=== PATIENT | male | born 1995 | race Caucasian/White ===

== ENCOUNTER → 2024-07-31 13:45 | Outpatient (BNVA) | payer OTHER, SELFPAY | PROVIDERS: Visit Provider Family Medicine | DX: J40 Bronchitis, not specified as acute or chronic (principal); J02.9 Acute pharyngitis, unspecified | CPT/HCPCS: 87880 ==

== ENCOUNTER → 2024-10-18 08:29 | Outpatient (BNVA) | payer OTHER, SELFPAY | PROVIDERS: PCP Family Medicine; Visit Provider Family Medicine | DX: Z13.6 Encounter for screening for cardiovascular disorders (principal) | CPT/HCPCS: 36415; 80053; 80061; 84443; 85025 ==

== ENCOUNTER 2024-11-02 15:16 | Emergency (ER) | payer OTHER, SELFPAY ==
--- NOTE | 2024-11-02 15:17 | XRR_ITS ---
PROCEDURE INFORMATION: Exam: XR Chest Exam date and time: 11/02/2024 3:45 PM Age: 29 years old Clinical indication: Chest pressure; -intermittent chest pain; Palpitations; Additional info: -intermittent chest pain; Palpitations TECHNIQUE: Imaging protocol: Radiologic exam of the chest. Views: 1 view. COMPARISON: No relevant prior studies available. FINDINGS: Lungs: Unremarkable. No consolidation or mass. Pleural spaces: Unremarkable. No pleural effusion. No pneumothorax. Heart/Mediastinum: Unremarkable. No cardiomegaly. Bones/joints: Unremarkable. XR/XR chest 1V portable [id number] IMPRESSION: No acute findings.
--- NOTE | 2024-11-02 15:17 | ECG_ITS ---
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 Measurements Intervals [place] Rate: 80 P: 67 TX: 131 QRS: 65 QRSD: 74 T: 32 QT: 339 QTc: 392 Interpretive Statements SINUS RHYTHM No previous ECG available for comparison Electronically Signed On 11-02-2024 21:08:55 CDT by Kay Diaz M.D. [email or web address]
[2024-11-02 15:18] VITALS: BP 146/79; PULSE 84; TEMP 36.9; O2SAT 100; BMI 32.7
--- NOTE | 2024-11-02 15:36 | W.ED.ARRPALP ---
HPI - Arrhythmia/Palpitations General: Chief Complaint: Arrhythmia/Palpitations Stated Complaint: chest pain Time Seen by Provider: 11/02/24 15:31 History of Present Illness: 29-year-old man with a history of ADHD, seasonal allergies, asthma and recently diagnosed hypertension who is currently only prescribed a as needed clonidine and supposed to be taking his blood pressure measurements at home and being followed by his primary care provider. He says he has been taking it once in the morning as he was told. He presents today with palpitations and chest tightness. Related Data Home Medications ?Medication ?Instructions ?Recorded ?Confirmed cetirizine 10 mg capsule (Zyrtec) 10 mg PO QAM PRN allergies 09/25/24 11/02/24 fluticasone propionate 50 1 spray intranasal DAILY 10/17/24 11/02/24 mcg/actuation nasal spray,suspension bupropion HCl 75 mg tablet 75 mg PO QAM 11/02/24 11/02/24 montelukast 10 mg tablet 10 mg PO QAM 11/02/24 11/02/24 Previous Rx's ?Medication ?Instructions ?Recorded albuterol sulfate 90 mcg/actuation 2 puff inhalation Q6H PRN 10/05/24 aerosol inhaler (Ventolin HFA) shortness of breath or wheezing #8.5 grams methylphenidate HCl 54 mg 54 mg PO QAM 30 days #30 tabs 10/24/24 tablet,extended release 24 hr (Concerta) clonidine HCl 0.1 mg tablet 0.1 mg PO Q8H PRN high blood 10/28/24 pressure #30 tabs Allergies Allergy/AdvReac Type Severity Reaction Status Date / Time cephelexin Allergy Headache Uncoded 11/02/24 15:27 Review of Systems Narrative: Constitutional symptoms: Negative except as documented in HPI. Skin symptoms: Negative except as documented in HPI. Eye symptoms: Negative except as documented in HPI. ENMT symptoms: Negative except as documented in HPI. Respiratory symptoms: Negative except as documented in HPI. Cardiovascular symptoms: Negative except as documented in HPI. Gastrointestinal symptoms: Negative except as documented in HPI. Genitourinary symptoms: Negative except as documented in HPI. Musculoskeletal symptoms: Negative except as documented in HPI. Neurologic symptoms: Negative except as documented in HPI. Psychiatric symptoms: Negative except as documented in HPI. Endocrine symptoms: Negative except as documented in HPI. PFSH ED PFSH: Medical History (Updated 11/02/24 @ 16:32 by Tracey Gamez MD) HTN (hypertension) with goal to be determined Seasonal allergies ADHD Psychiatric care Surgical History History of placement of ear tubes Family History Grandfather Cancer Heart disease Grandmother Heart disease Mother Breast cancer Brother Seizure disorder Social History Smoking and tobacco/nicotine status: never used tobacco/nicotine Alcohol intake: current Alcohol intake frequency: holidays/special occasions only Alcohol type: beer and wine Substance/Drug Use: never Physical Exam Narrative: EXAM NARRATIVE: General: Alert, no acute distress. Skin: Warm, dry. Head: Normocephalic, atraumatic. Neck: Supple, trachea midline. Eye: Extraocular movements are intact. Ears, nose, mouth and throat: mucosa moist. Cardiovascular: Regular, Normal peripheral perfusion. Respiratory: Lungs are clear to auscultation, respirations are non-labored, breath sounds are equal, Symmetrical chest wall expansion. Gastrointestinal: Soft, Nontender, Non distended Musculoskeletal: Normal ROM, no deformity. Neurological: Alert and oriented, No focal neurological deficit observed. Psychiatric: Cooperative, appropriate mood & affect. Course Vital Signs: Vital signs: Vital Signs Temperature 98.5 F 11/02/24 15:18 Pulse Rate 91 11/02/24 16:04 Respiratory Rate 18 11/02/24 15:50 Blood Pressure 122/84 11/02/24 16:04 Pulse Oximetry 95 11/02/24 16:04 Oxygen Delivery Me thod Room Air 11/02/24 16:04 MDM - Arrhythmia/Palpitations Medical Decision Making Medical decision making: Differential diagnosis including but not limited to and based on the above HPI, review of systems and physical exam: for patient with palpitations: atrial fibrillation with rapid ventricular response. ventricular tachycardia. sinus tachycardia. PVCs. also concern for underlying issues causing tachycardia. Infection, electrolyte abnormalities and thyroid issues. Orders placed to evaluate differential diagnosis based on the above differential, HPI and physical exam EKG: Time 1521. Rate 80. Normal sinus rhythm, No ST-T changes, no ectopy, normal RI & QRS intervals, This was reviewed and interpreted by myself the ER physician at 1525. Chest x-ray: No acute process. No infiltrate. No pneumothorax. This was reviewed and interpreted by myself the emergency room physician. I also reviewed the radiology report. Lab Review: Laboratory results were reviewed and interpreted by myself the emergency room physician. No leukocytosis. No anemia. BUN/creatinine are slightly elevated at 24 and 1.2. However this is similar to previous labs done last month. I reviewed the patient's medical record. Reexamination: Patient remained stable. No increased work of breathing. No altered mental status. No focal motor deficits. Assessment and plan: Palpitations Noncardiac chest pain - Discharged home - Discussed plan with patient. Answered any questions. - Evaluation and treatment of this problem were appropriate in the emergency setting. Lab Data 11/02/24 15:38 11/02/24 15:38 Laboratory Results WBC 6.25 10^3/uL (3.29-11.43) 11/02/24 15:38 RBC 4.78 10^6/uL (3.85-5.65) 11/02/24 15:38 Hgb 14.00 g/dL (11.27-16.99) 11/02/24 15:38 Hct 42.4 % (37-53) 11/02/24 15:38 MCV 88.7 fl (82-101) 11/02/24 15:38 MCH 29.3 pg (27-33) 11/02/24 15:38 MCHC 33.0 g/dL (30-55) 11/02/24 15:38 RDW 12.3 % (12.1-15.1) 11/02/24 15:38 Plt Count 314 10^3/cmm (157-399) 11/02/24 15:38 MPV 9.6 fL (7.4-10.4) 11/02/24 15:38 Neut % (Auto) 50.9 % 11/02/24 15:38 Lymph % (Auto) 33.0 % 11/02/24 15:38 [place] % (Auto) 9.0 % 11/02/24 15:38 Eos % (Auto) 5.6 % 11/02/24 15:38 Baso % (Auto) 1.3 % 11/02/24 15:38 Neut # (Auto) 3.19 10^3/uL (1.8-7.7) 11/02/24 15:38 Lymph # (Auto) 2.1 10^3/uL (0.8-4.8) 11/02/24 15:38 [place] # (Auto) 0.6 10^3/uL (0.2-0.9) 11/02/24 15:38 Eos # (Auto) 0.4 10^3/uL (0.0-0.8) 11/02/24 15:38 Baso # (Auto) 0.1 10^3/uL (0.0-0.1) 11/02/24 15:38 Nucleated RBC % (auto) 0 % 11/02/24 15:38 Nucleated RBCs # 0.0 /100WBC 11/02/24 15:38 Sodium 142 mmol/L (136-145) 11/02/24 15:38 Potassium 4.1 mmol/L (3.5-5.1) 11/02/24 15:38 Chloride 105 mmol/L (98-107) 11/02/24 15:38 Carbon Dioxide 27 mmol/L (22-29) 11/02/24 15:38 Anion Gap 14.1 (5-19) 11/02/24 15:38 BUN 24 mg/dL (6-20) H 11/02/24 15:38 Creatinine 1.2 mg/dL (0.7-1.2) 11/02/24 15:38 GFR Calculation 70.6 mL/min (90-130) L 11/02/24 15:38 Glucose 83 mg/dL (65-115) 11/02/24 15:38 Calculated Osmolality 297 mOsm/kg (285-295) H 11/02/24 15:38 Calcium 9.8 mg/dL (8.5-10.5) 11/02/24 15:38 Magnesium 2.0 mg/dL (1.7-2.3) 11/02/24 15:38 Total Bilirubin 0.3 mg/dL (0.15-1.2) 11/02/24 15:38 AST 28 U/L (0-40) 11/02/24 15:38 ALT 44 U/L (0-41) H 11/02/24 15:38 Alkaline Phosphatase 68 U/L (40-130) 11/02/24 15:38 Troponin T Baseline < 6 ng/L (0-15) 11/02/24 15:38 Total Protein 7.4 g/dL (6.6-8.7) 11/02/24 15:38 Albumin 4.7 g/dL (3.5-5.2) 11/02/24 15:38 Globulin 2.7 g/dL (1.3-4.6) 11/02/24 15:38 Lipase 34 U/L (13-60) 11/02/24 15:38 TSH 3.38 uIU/mL (0.27-4.20) 11/02/24 15:38 Urine Color Yellow (Yellow) 11/02/24 16:00 Urine Appearance Clear (CLEAR) 11/02/24 16:00 Urine pH 7.0 (5-7) 11/02/24 16:00 Ur Specific [place] 1.025 (1.005-1.030) 11/02/24 16:00 Urine Protein Negative (Negative) 11/02/24 16:00 Urine Glucose (UA) Negative (Normal) 11/02/24 16:00 Urine Ketones Trace (Negative) 11/02/24 16:00 Urine Blood Negative (Negative) 11/02/24 16:00 Urine Nitrate Negative (Negative) 11/02/24 16:00 Urine Bilirubin Negative (Negative) 11/02/24 16:00 Urine Urobilinogen 1.0 mg/dL (Negative) 11/02/24 16:00 Ur Leukocyte Esterase Negative (Negative) 11/02/24 16:00 Urine RBC 0-2 /hpf (0-2) 11/02/24 16:00 Urine WBC 0-5 /hpf (0-5) 11/02/24 16:00 Ur Squamous Epith Cells 0-5 /hpf (0-5) 11/02/24 16:00 Amorphous Sediment Not Reportable 11/02/24 16:00 Urine Bacteria None seen /hpf (NONE) 11/02/24 16:00 Hyaline Casts 0.40 /lpf 11/02/24 16:00 Urine Opiates Screen Negative ng/mL (Negative) 11/02/24 16:00 Ur Barbiturates Screen Negative ng/mL (Negative) 11/02/24 16:00 Ur Phencyclidine Scrn Negative ng/mL (Negative) 11/02/24 16:00 Ur Amphetamines Screen Negative ng/mL (Negative) 11/02/24 16:00 U Benzodiazepines Scrn Negative ng/mL (Negative) 11/02/24 16:00 Urine Cocaine Screen Negative ng/mL (Negative) 11/02/24 16:00 U Marijuana (THC) Screen Negative ng/mL (Negative) 11/02/24 16:00 All radiology interpretation(s) finalized by discharge Discharge Plan Discharge Patient Disposition: Home Clinical Impression: Palpitations, Non-cardiac chest pain Condition: Stable Prescriptions: No Action Zyrtec 10 mg capsule 10 mg PO QAM PRN (Reason: allergies) albuterol sulfate [Ventolin HFA] 90 mcg/actuation HFA aerosol inhaler 2 puff inhalation Q6H PRN (Reason: shortness of breath or wheezing) Qty: 8.5 0RF fluticasone propionate 50 mcg/actuation spray,suspension 1 spray intranasal DAILY Rx Instructions: administer into each nostril clonidine HCl 0.1 mg tablet 0.1 mg PO Q8H PRN (Reason: high blood pressure) Qty: 30 1RF methylphenidate HCl [Concerta] 54 mg tablet extended release 24hr 54 mg PO QAM 30 Days Qty: 30 0RF bupropion HCl 75 mg tablet 75 mg PO QAM montelukast 10 mg tablet 10 mg PO QAM Discharge Orders: Discharge ED (Routine); Ordered 11/02/24 Ordered By: Tracey Gamez Referrals: Nelida Mays DO [Primary Care Provider, Family Practice] Discharge Diet: Usual diet Discharge Activity: Increase activity as tolerated Patient Instructions: Noncardiac Chest Pain (ED), Opioid Safety, Pain Management Activity Restrictions/Additional Instructions: Thank you for choosing [facility] for your healthcare needs today. You have been screened and evaluated and felt safe for discharge. Health conditions do change or evolve sometimes and as such it is important that you follow up with your Primary Doctor to be re checked, 3-5 days is a general good time frame for follow up. 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
[2024-11-02 15:43] LABS: Basophils # 0.1 10^3/uL (0.0-0.1); Basophils % 1.3 %; Eosinophils # 0.4 10^3/uL (0.0-0.8); Eosinophils % 5.6 %; Hematocrit 42.4 % (37-53); Lymphocytes # 2.1 10^3/uL (0.8-4.8); Mean Corpuscular Hemoglobin 29.3 pg (27-33); Mean Corpuscular Volume 88.7 fl (82-101); Mean Platelet Volume 9.6 fL (7.4-10.4); Monocytes # 0.6 10^3/uL (0.2-0.9); Neutrophils # 3.19 10^3/uL (1.8-7.7); Neutrophils % 50.9 %; Nucleated Red Blood Cells % 0 %; Platelet Count 314 10^3/cmm (157-399); Red Blood Count 4.78 10^6/uL (3.85-5.65); Red Cell Distribution Width 12.3 % (12.1-15.1); White Blood Count 6.25 10^3/uL (3.29-11.43)
[2024-11-02 15:50] VITALS: BP 108/89; PULSE 80; RESP 18; O2SAT 96
[2024-11-02 15:57] VITALS: BP 130/78; O2SAT 95
[2024-11-02 16:04] VITALS: BP 122/84; PULSE 91; O2SAT 95
[2024-11-02 16:04] LABS: Troponin(5th) Baseline < 6 ng/L (0-15)
[2024-11-02 16:07] LABS: Bilirubin Urine Negative (Negative); Blood Urine Negative (Negative); Glucose Urine UA Negative (Normal); Ketones Urine Trace (Negative); Leukocyte Esterase Urine Negative (Negative); Nitrate Urine Negative (Negative); Protein Urine Negative (Negative); Specific Gravity, Urine 1.025 (1.005-1.030); Urine Appearance Clear (CLEAR); Urine Color Yellow (Yellow)
[2024-11-02 16:12] LABS: Bacteria Urine None Seen /hpf; RBC Urine 0-2 /hpf (0-2); Squamous Epithelial Cell Urine 0-5 /hpf (0-5); WBC Urine 0-5 /hpf (0-5)
[2024-11-02 16:14] LABS: Amphetamines Screen Urine Negative (Negative); Barbiturates Screen Urine Negative (Negative); Benzodiazepines Screen Urine Negative (Negative); Cocaine Screen Urine Negative (Negative); Opiate Screen Urine Negative (Negative); PCP Screen Urine Negative (Negative); THC Screen Urine Negative (Negative)
[2024-11-02 16:15] LABS: Alanine Aminotransferase 44 U/L (0-41); Albumin Level 4.7 g/dL (3.5-5.2); Alkaline Phosphatase 68 U/L (40-130); Anion Gap 14.1 (5-19); Aspartate Amino Transferase 28 U/L (0-40); Blood Urea Nitrogen 24 mg/dL (6-20); Calcium 9.8 mg/dL (8.5-10.5); Carbon Dioxide 27 mmol/L (22-29); Chloride 105 mmol/L (98-107); Creatinine Clr Calc Pharmacy 117.2462; Globulin 2.7 g/dL (1.3-4.6); Glomerular Filtration Rate 70.6 mL/min (90-130); Glucose 83 mg/dL (65-115); Lipase 34 U/L (13-60); Osmolality Calculated 297 mOsm/kg (285-295); Potassium 4.1 mmol/L (3.5-5.1); Sodium 142 mmol/L (136-145); Thyroid Stimulating Hormone 3.38 uIU/mL (0.27-4.20); Total Bilirubin 0.3 mg/dL (0.15-1.2); Total Protein 7.4 g/dL (6.6-8.7)
[2024-11-02 16:42] VITALS: BP 114/85; PULSE 95; O2SAT 96
== END 2024-11-02 16:42 | disposition home or self-care (01) ==
PROVIDERS: Emergency Medicine; Emergency Provider Emergency Medicine; PCP Family Medicine
DX: R00.2 Palpitations (principal); R07.89 Other chest pain; I10 Essential (primary) hypertension
CPT/HCPCS: 36415; 71045; 80053; 80306; 81001; 83690; 83735; 84443; 84484; 85025; 93005; 99285

== ENCOUNTER → 2025-03-10 10:21 | Outpatient (BNVA) | payer OTHER, SELFPAY | PROVIDERS: PCP Family Medicine | DX: R52 Pain, unspecified (principal) | CPT/HCPCS: 87400; 87426 ==

== ENCOUNTER 2025-04-16 16:38 | Outpatient (CLI) | payer OTHER, SELFPAY | END 2025-04-16 16:39 | disposition home or self-care (01) | LOC: LAB 04-18 07:26 | PROVIDERS: PCP Family Medicine; Visit Provider Nurse Practitioner Psychiatric/Mental Health | DX: Z79.899 Other long term (current) drug therapy (principal) | CPT/HCPCS: 80053; 82306; 82607; 84403 ==